=== PATIENT | male | born 1935 | race Caucasian/White ===

== ENCOUNTER 2016-09-01 15:47 | Inpatient (IN) | payer MEDICARE ==
[~2016-09-01] VITALS: Ht 175.3 cm; Wt 68.0 kg
[~2016-09-01 15:47] MED LIST: ARICEPT10 MG PO; BENICAR40 MG PO; CASODEX50 MG PO; COUMADIN2 MG PO; HYDROCODON-ACE1 EAC7 PO; ISORDIL5 MG; ISORDIL5 MG PO; ISOSORBIDE MONO30 M1 PO; LIPITOR10 MG PO; LIPITOR20 MG PO; MYSOLINE 50 MG50 MG PO; NORVASC10 MG PO; OXYBUTYNIN ER PO; OXYBUTYNIN15 MG/BOTT PO; TENORMIN50 MG PO; ZOFRAN ODT4 MG/UDTAB PO; [UNRECOGNIZED DRUG - OTHER]
[2016-09-01 16:24] VITALS: BP 149/90; BMI 22.2
--- NOTE | 2016-09-01 17:57 | NUR ---
SITTING UP IN BED WITH CALLIGHT IN REACH.
[2016-09-01 19:45] VITALS: BP 141/71
--- NOTE | 2016-09-01 20:35 | NUR ---
PT TOOK HS MEDS WITHOUT DIFFICULTY. PT SPILLED URINAL, BED LINENS WERE CHANGED. PT DENIES FURTHUR NEEDS. WCTM. BED LOW. CLIN REACH.
--- NOTE | 2016-09-01 22:28 | NUR ---
PT RESTING, EYES CLOSED. BED LOW. CLIN REACH. WCTM.
--- NOTE | 2016-09-02 00:23 | NUR ---
PT RESTING, EYES CLOSED. BED LOW. CLIN REACH. WCTM.
[2016-09-02 05:28] LABS: INR 1.31 (0.85-1.17); PROTIME 16.2 SECONDS (11.6-15.0)
--- NOTE | 2016-09-02 07:29 | NUR ---
ASSISTED WITH BEDPAN AND URINAL.CL IN REACH.
[2016-09-02 08:00] VITALS: BP 92/47
--- NOTE | 2016-09-02 08:00 | NUR ---
PATIENT ALERT/ORIENT X3. SOME FOREGETFULNESS NOTED. CALL LIGHT WITHIN REACH. VOICES NO NEEDS AT THIS TIME
--- NOTE | 2016-09-02 09:30 | NUR ---
INTO SEE PATIENT. ADMISSION PAPER WORK SIGNED BY .
[2016-09-02 10:42] VITALS: Ht 175.3 cm; Wt 68.0 kg
--- NOTE | 2016-09-02 10:45 | NUR ---
PATIENT IN REHAB ROOM. WORKING WITH PHYSICAL THERAPIST. DENIES ANY PAIN/DISC.
--- NOTE | 2016-09-02 14:00 | NUR ---
PATIENT HELPED INTO BATHROOM. MAX ASST WITH ONE PERSON. PATIENT ABLE TO STAND ON OWN, BUT CAN NOT PIVOT WITHOUT HELP. NEEDS HELP TO PULL UP AND DOWN PANTS
--- NOTE | 2016-09-02 17:00 | NUR ---
PATIENT HAS VISITORS IN ROOM. RESTING IN BED WELL. SITTING UP IN BED FOR SUPPER
[2016-09-02 19:35] VITALS: BP 112/53
--- NOTE | 2016-09-02 21:55 | NUR ---
PT TOOK HS MEDS WITHOUT DIFFICULTY. PT DENIES NEEDS AT THIS TIME. BED LOW. CL IN REACH. WCTM.
--- NOTE | 2016-09-03 03:35 | NUR ---
PT RESTING, EYES CLOSED. NO DISTRESS NOTED. WCTM. BED LOW. CL INREACH.
[2016-09-03 06:10] LABS: BASOPHILS 0.2 % (0.0-2.0); HEMATOCRIT 30.2 % (42.0-54.0); HEMOGLOBIN 10.1 g/dL (13.5-17.5); IMMATURE GRANULOCYTES 0.1 % (0-5); LYMPHOCYTES 16.1 % (15-50); MCH 32.8 pg (26.0-34.0); MCHC 33.4 g/dL (31.0-37.0); MCV 98.1 fL (80.0-100.0); MEAN PLATELET VOLUME 9.2 fL (7.4-10.4); MONOCYTES 14.5 % (2-11); NEUTROPHILS 67.1 % (40-80); PLATELET COUNT 142 10x3/uL (130-400); RBC 3.08 10x6/uL (4.20-6.10); RDW 13.4 % (11.5-14.5)
[2016-09-03 06:19] LABS: INR 1.33 (0.85-1.17); PROTIME 16.4 SECONDS (11.6-15.0)
[2016-09-03 06:22] LABS: CALC OSMOLALITY 283 mosm/kg (275-300); CALCIUM 8.6 mg/dL (8.5-10.1); CARBON DIOXIDE 30.3 mmol/L (21.0-32.0); CHLORIDE - SERUM 104 mmol/L (98-107); CREATININE - SERUM 0.8 mg/dL (0.6-1.3); GLUCOSE 95 mg/dL (74-106); SODIUM 141 mmol/L (136-145); UREA NITROGEN 20 mg/dL (7-18); eGFR NON AFRICAN AMERICAN > 90 mL/min (90-120)
--- NOTE | 2016-09-03 07:50 | NUR ---
SITTING UP IN BED WITH IN THE ROOM EATING BREAKFAST.
[2016-09-03 08:40] VITALS: BP 105/59
--- NOTE | 2016-09-03 09:55 | NUR ---
SITTING IN WHEELCHAIR IN GYM WORKING WITH THERAPY.
--- NOTE | 2016-09-03 11:46 | NUR ---
SITTING IN WHEELCHAIR WITHOUT ANY FALLS NOTED.
--- NOTE | 2016-09-03 19:20 | NUR ---
PT RESTING IN BED, WATCHING TV, DENIES NEEDS AT THIS TIME. BED LOW. CL INR EACH. WCTM.
--- NOTE | 2016-09-03 20:40 | NUR ---
PT TOOK HS MEDS WITHOUT DIFFICULTY, DENIES FURTHUR NEEDS AT THIS TIEM. BED LOW. CLIN REACH. WCTM.
--- NOTE | 2016-09-03 21:54 | NUR ---
ASSISTED PT TO BR. PT BACK IN BED AND READY FOR SLEEP. DENIES FURTHUR NEEDS. WCTM. BED LOW. CL IN REACH.
--- NOTE | 2016-09-04 02:52 | NUR ---
PT RESTING, EYES CLOSED. NO SIGNS OF DISTRESS NOTED. WCTM. BED LOW. CL IN REACH.
--- NOTE | 2016-09-04 07:00 | NUR ---
Pt. was received in bed awake at the beginning of this shift. Pt. is alert and oriented x 3. at bedside. Pt. uses a urinal. Vital signs: Temp. 98.0, pulse 61, resp. 14, b/p 131/67, 02Sat 97%. Pt. requires moderate assist. No voiced complaints or signs of discomfort or distress. Will be monitoring him throughout this shift and offering assist with adl's.
[2016-09-04 07:47] LABS: INR 1.27 (0.85-1.17); PROTIME 15.8 SECONDS (11.6-15.0)
[2016-09-04 10:34] VITALS: BP 131/67
--- NOTE | 2016-09-04 17:59 | NUR ---
Pt's IV in left ac was dc'd this morning. He can stand and transfer to wheelchair with assist. Pt. has had company on and off today. He did go to therapy this morning and worked very well. He had an uneventful day.
--- NOTE | 2016-09-04 19:30 | NUR ---
PT RESTING IN BED WITH EYES CLOSED. AWOKE EASILY TO VERBAL STIMULI. DENIES NEEDS. NO COMPLAINT OF DISCOMFORT VOICED. VSS. PT USING URINAL PRN. SR'S ARE UP X 3 IN BED. CALL LIGHT AND BEDSIDE TABLE ARE WITHIN EASY REACH.
[2016-09-04 20:00] VITALS: BP 122/65
--- NOTE | 2016-09-04 21:27 | NUR ---
PT IS RESTING QUIETLY IN BED WITH EYES CLOSED. RESPS ARE EVEN AND UNLABORED. NO ACUTE DISTRESS NOTED.
--- NOTE | 2016-09-04 21:49 | NUR ---
PT. IN BED WITH HOB UP FOR COMFORT LYING ON HIS BACK WITH EYES CLOSED AND RESP. EVEN. CALL LIGHT WITHIN REACH.
--- NOTE | 2016-09-05 01:19 | NUR ---
RESTING IN BED WITH EYES CLOSED.
--- NOTE | 2016-09-05 03:00 | NUR ---
RESTING IN BED WITH EYES CLOSED.
--- NOTE | 2016-09-05 05:42 | NUR ---
PT IS RESTING QUIETLY IN BED WITH EYES CLOSED. RESPS ARE EVEN AND UNLABORED. NO ACUTE DISTRESS NOTED. USING URINAL PRN.
[2016-09-05 07:32] LABS: INR 1.23 (0.85-1.17); PROTIME 15.4 SECONDS (11.6-15.0)
--- NOTE | 2016-09-05 07:45 | NUR ---
ASSISTED PT TO BR VIA WHEELCHAIR. SIDERAILS UP X 2 PRIOR TO TRANSFER.
[2016-09-05 09:00] VITALS: BP 113/56
--- NOTE | 2016-09-05 11:19 | NUR ---
SITTING UP IN BED WITH IN THE ROOM. CALLIGHT IN REACH.
--- NOTE | 2016-09-05 13:57 | NUR ---
ASSISTED TO BR AND BACK TO BED. VOIDED YELLOW URINE.
--- NOTE | 2016-09-05 15:40 | NUR ---
SLEEPING IN BED WITH SIDERAILS UP X2.
--- NOTE | 2016-09-05 17:05 | NUR ---
RESTING IN BED WITH HOB UP 90 DEGREES. EATING DINNER.
[2016-09-05 19:00] VITALS: BP 136/59
--- NOTE | 2016-09-05 19:15 | NUR ---
PATIENT RESTING IN BED ON LEFT SIDE, EYES CLOSED. WAS UNDISTURBED WHEN I RAISED RIGHT FOOTRAIL FOR SAFETY (SR NOW UP X3).
--- NOTE | 2016-09-05 19:30 | NUR ---
PATIENT IN BED, AWAKE SINCE RECENT VS WERE TAKEN BY CHILD WELFARE CASEWORKER. DENIES CURRENT NEEDS.
--- NOTE | 2016-09-05 21:05 | NUR ---
ASSESSMENT AND HS MEDS COMPLETE. PATIENT A&O X4. DENIES NEEDS.
--- NOTE | 2016-09-05 22:15 | NUR ---
RESTING QUEITLY IN BED, EYES CLOSED.
--- NOTE | 2016-09-06 00:30 | NUR ---
PATIENT IN BED, AWAKE. HAS NOT URINATED THIS SHIFT SO FAR. [employer] STORAGE CLERK CHECKED PATIENT AND CONFIRMS PATIENT'S CLAIM THAT HE IS DRY. PATIENT STATES HE HAS NO CURRENT URGENCY TO URINATE. URINAL IS IN REACH AT BEDSIDE.
--- NOTE | 2016-09-06 02:30 | NUR ---
PATIENT AWAKE, HAVING JUST USED URINAL. EMPTIED 250ML FROM BEDSIDE URINAL.
--- NOTE | 2016-09-06 04:45 | NUR ---
RESTING IN BED, EYES CLOSED. RESPIRING QUIETLY.
--- NOTE | 2016-09-06 06:20 | NUR ---
RESTING IN BED, EYES CLOSED AFTER ASSIST UP TO BR COMMODE EARLIER.
[2016-09-06 06:43] LABS: INR 1.18 (0.85-1.17); PROTIME 14.9 SECONDS (11.6-15.0)
--- NOTE | 2016-09-06 07:52 | NUR ---
RESTING FLAT IN BED WITH CALLIGT IN REACH.
[2016-09-06 09:00] VITALS: BP 81/47
--- NOTE | 2016-09-06 09:45 | NUR ---
AMBULATING IN HALLWAY WITH MINH THERAPIST. NO FALLS NOTED.
--- NOTE | 2016-09-06 11:24 | NUR ---
SITTING IN WHEELCHAIR WORKING WITH THERAY.
--- NOTE | 2016-09-06 13:50 | NUR ---
RESTING IN BED WITH VISITOR IN THE ROOM.
[2016-09-06 14:02] VITALS: BP 135/72
--- NOTE | 2016-09-06 15:45 | NUR ---
RESTING IN BED WITH CALLIGHT IN REACH.
--- NOTE | 2016-09-06 17:45 | NUR ---
SITTING UP IN BED EATING DINNER.
--- NOTE | 2016-09-06 19:34 | NUR ---
PT IS RESTING IN BED WITH EYES OPEN. ALERT AND ORIENTED X 3. DENIES DISCOMFORT AT THIS TIME. VSS. VISITOR AT BEDSIDE. NO NEEDS VOICED. SR'S ARE UP X 2 IN BED. CALL LIGHT AND BEDSIDE TABLE ARE WITHIN EASY REACH.
[2016-09-06 21:08] VITALS: BP 122/69
--- NOTE | 2016-09-06 22:11 | NUR ---
RESTING IN BED WITH EYES CLOSED. NO DISTRESS NOTED.
--- NOTE | 2016-09-06 23:48 | NUR ---
PT IS RESTING IN BED WITH EYES CLOSED.
--- NOTE | 2016-09-07 02:23 | NUR ---
PT RESTING IN BED WITH EYES CLOSED.
--- NOTE | 2016-09-07 05:44 | NUR ---
PT APPROXIMATELY 0500 WOKE AND WAS CONFUSED TO SITUATION AND ENVIRONMENT, PT APPEARED TO THINK HE WAS AT HOME AND WAS YELLING FOR HIS . ATTEMPTED TO REORIENT PATIENT TO LOCATION WITHOUT WAKING ROOMMATE. RESPIRATIONS REGULAR AND UNLABORED,
[2016-09-07 05:49] LABS: INR 1.29 (0.85-1.17)
[2016-09-07 08:38] VITALS: BP 129/72
--- NOTE | 2016-09-07 13:58 | NUR ---
Received pt. in bed at the beginning of this shift. No signs of any discomfort or distress. Alert and oriented x 3. Vital signs: Temp. 98.0, pulse 70, resp. 12, b/p 129/72, 02Sat. 98%. Will be monitoring him throughout this shift and assisting prn with adl's.
[2016-09-07 19:00] VITALS: BP 135/63
--- NOTE | 2016-09-07 20:00 | NUR ---
PT IS RESTING IN BED WITH EYES OPEN. ALERT AND ORIENTED X 3. DENIES ACUTE DISCOMFORT. ASSSITED UP TO BATHROOM WITH SBA. PT VOICED PRIDE IN HIS PROGRESS ON REHAB. FRIEND IN ROOM ASSISTING HIM WITH ADL'S. SR'S ARE UP X 2 IN BED. CALL LIGHT AND BEDSIDE TABLE ARE WITHIN EASY REACH.
--- NOTE | 2016-09-07 21:55 | NUR ---
RESTING QUIETLY IN BED WITH EYES CLOSED. RESPS ARE EVEN AND UNLABORED. NO ACUTE DISTRESS NOTED.
--- NOTE | 2016-09-08 00:20 | NUR ---
RESTING IN BED WITH EYES CLOSED.
--- NOTE | 2016-09-08 02:56 | NUR ---
PT IS RESTING QUIETLY IN BED WITH EYES CLOSED.
--- NOTE | 2016-09-08 03:54 | NUR ---
PT RESTING QUIETLY, EYES CLOSED RESPIRATIONS REGULAR AND UNLABORED. PT USES CALLLIGHT TO COMMUNICATE NEED FOR ASSISTANCE. SPOUSE WAS PRESENT AT BEGINNING OF SHIFT VISITING WITH PATIENT.
[2016-09-08 06:52] LABS: BASOPHILS 0.6 % (0.0-2.0); EOSINOPHILS 5.2 % (0-7); HEMOGLOBIN 9.8 g/dL (13.5-17.5); IMMATURE GRANULOCYTES 0.2 % (0-5); LYMPHOCYTES 18.9 % (15-50); MCH 32.9 pg (26.0-34.0); MCHC 33.8 g/dL (31.0-37.0); MCV 97.3 fL (80.0-100.0); MEAN PLATELET VOLUME 9.1 fL (7.4-10.4); MONOCYTES 13.9 % (2-11); NEUTROPHILS 61.2 % (40-80); RBC 2.98 10x6/uL (4.20-6.10); RDW 12.7 % (11.5-14.5); WBC 6.6 10x3/uL (4.8-10.8)
[2016-09-08 07:07] LABS: INR 1.2 (0.85-1.17); PLATELET COUNT 209 10x3/uL (130-400); PROTIME 15.1 SECONDS (11.6-15.0)
--- NOTE | 2016-09-08 07:10 | NUR ---
RESTING QUIETLY IN BED. CALL LIGHT IN REACH
[2016-09-08 07:16] LABS: CALC OSMOLALITY 280 mosm/kg (275-300); CALCIUM 8.4 mg/dL (8.5-10.1); CARBON DIOXIDE 30.1 mmol/L (21.0-32.0); CHLORIDE - SERUM 103 mmol/L (98-107); CREATININE - SERUM 0.8 mg/dL (0.6-1.3); GLUCOSE 90 mg/dL (74-106); POTASSIUM - SERUM 3.1 mmol/L (3.5-5.1); SODIUM 139 mmol/L (136-145); UREA NITROGEN 20 mg/dL (7-18); eGFR NON AFRICAN AMERICAN > 90 mL/min (90-120)
--- NOTE | 2016-09-08 07:36 | NUR ---
PATIENT LYING IN BED. ALERT/ORIENT X4. CALL LIGHT WITHIN REACH. VOICES NO NEEDS AT THIS TIME
[2016-09-08 08:15] VITALS: BP 138/74
--- NOTE | 2016-09-08 10:21 | NUR ---
PATIENT IN REHAB ROOM. WORKING WITH PHYSICAL THERAPIST. DENIES ANY PAIN/DISC AT THIS TIME
--- NOTE | 2016-09-08 12:15 | NUR ---
FAMILY INTO VISIT WITH PATIENT. PATIENT SITTING UP IN BED TO EAT LUNCH.
--- NOTE | 2016-09-08 13:55 | NUR ---
PATIENT AND PATIENTS FAMILY REQUESTED THAT PATIENT BE MOVED. NOT GETTING ALONG WITH ROOMMATE. PATIENT MOVED FROM ROOM 1111A TO 1115.
--- NOTE | 2016-09-08 16:34 | RHP ---
PATIENT: SUSANNAH DE LA CRUZ MEDICAL RECORD: [id number] ACCOUNT: [id number] LOCATION:[facility]1115 : 34 ADMISSION DATE: 09/01/16 REHABILITATION HISTORY AND PHYSICAL EXAMINATION POST ADMISSION PHYSICIAN EXAMINATION DATE OF ADMISSIONS: 09/01/2016. ADMITTING DIAGNOSES: The patient is admitted for an acute right temporal subarachnoid hemorrhage and acute displaced left superior and inferior pubic rami fracture, also a fall. HISTORY OF PRESENT ILLNESS: The patient is an 81-year-old gentleman who is admitted to the rehab with a right temporal subarachnoid hemorrhage and pelvic fracture. He states he wakes on the morning of August 30, was walking from his kitchen to his living room and apparently failed. He denies any other symptoms. He does not recall any loss of consciousness, but he does report pain in the left side of his head as well as his left hip area. In the Emergency Room, he had a temperature 97.5, pulse 80, respirations 20, blood pressure 132/86 and sats 100%. He was 10/10 at on the pain scale though according to the patient. He was alert and oriented times 3, CT of his head showed a right temporal subarachnoid hemorrhage. 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 He is admitted to the ICU with ortho consult for the pelvic fracture. Prior to admit, he was independent with ADLs and mobility without device. Currently, he is moderate to max assist for ADLs and mobility that is greatly affected by pain. The patient would definitely need to stay here in rehab for a little bit to get back to his prior level of function and hopefully will return home. COMORBIDITIES: in this patient include mitral valve insufficiency, coronary artery disease, abdominal aortic aneurysm, hypertension, pacemaker placement, Cole's palsy. 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 PAST MEDICAL HISTORY: Significant for arrhythmias. She has got a history of an AAA, coronary artery disease and hypertension. He has got a history of gastroesophageal reflux disease, gout, nicotine dependence, and seizures. PAST SURGICAL HISTORY: Includes prostatectomy, pacemaker placement, Schatzki ring dilatation and coronary artery bypass grafting times 3. ALLERGIES: HE IS ALLERGIC TO AMBIEN. CURRENT MEDICATIONS: Include Primidone 150 mg daily, Benicar 40 mg daily, Imdur 15 mg daily. He is on ____ mg daily. He is on Primidone 100 mg at bedtime. He is on oxybutynin 15 mg at bedtime, hydrocodone 5/325 as needed for pain, Aricept 10 mg at bedtime. He is on Lipitor 10 mg daily, amlodipine 10 mg daily, atenolol 50 mg b.i.d., polyethylene glycol 17 grams in 8 ounces of water daily. HABITS: He does have a history of tobacco use. FAMILY HISTORY: Noncontributory. HISTORY AND PHYSICAL [id number] SUSANNAH DE LA CRUZ SOCIAL HISTORY: The patient hopes to return back home and live with his spouse. REVIEW OF SYSTEMS: GENERAL: He does complain of some weakness and fatigue. HEENT: He denies cold, cough, or congestion. CARDIOVASCULAR: He denies chest pain. LUNGS: No shortness of breath. PHYSICAL EXAMINATION: VITAL SIGNS: Stable and afebrile. GENERAL: A thin gentleman in no acute distress, alert upon exam. HEENT: Normocephalic and atraumatic. Mucosa moist. NECK: Supple. No lymphadenopathy. LUNGS: Clear at this time. HEART: Regular rate and rhythm. ABDOMEN: Benign. EXTREMITIES: No clubbing, cyanosis or edema. He does have pain around his pelvic girth. NEUROLOGIC: Slow to mentate, but does answer most questions. The only blood work we have back on at this time is his INR which is 1.31 as Coumadin is being held secondary to subarachnoid hemorrhage. ASSESSMENT: This is an 81-year-old gentleman who is admitted with subarachnoid hemorrhage and also with pelvic fracture. The patient has potential to make improvement. We instituted the following multidisciplinary therapies including to, but not limited to physical, occupational, respiratory, speech, nutritional services, prosthetics and orthotics. Given his complex medical condition and risk of further medical complications, the patient cannot be evaluated at a lower level of care such as a jail facility. PLAN: 1. Admit to [facility] rehab for intensive inpatient therapy to include the following disciplines: A. Physical therapy to improve gait, all transfer skills and bed mobility to a modified independent level. B. Occupational therapy to improve activities of daily living to a modified independent level. C. Case management to assist with discharge planning and placement options. D. Nutrition to assist with nutritional needs. E. Rehabilitation nursing to assist in monitoring the patient's underlying medical conditions and to assist with any type of bowel or bladder management. 2. The patient's current medication and medical care will be continued. 3. The patient will be placed on standard fall precautions. 4. The patient's estimated length of stay is approximately 7-10 days. 5. Discuss this patient during care team staff meeting this week. TRANSINT:[id number] Voice Confirmation ID: [id number] DOCUMENT ID: [id number] HISTORY AND PHYSICAL [id number] SUSANNAH DE LA CRUZ, BARRIE CHAMBERLAIN at 1634 CC: [id number] DICTATION DATE: 09/02/16 1020 COMMAND AND CONTROL SPECIALIST: 09/02/16 1101 ADM IN [id number] [place] [address]
--- NOTE | 2016-09-08 17:16 | NUR ---
CARE TEAM MEETING: PATIENT TENATIVE DISCHARGE DATE IS 09/16/16. SPOUSE AND DAUGHTER ATTENDED MEETING. PLANS ARE FOR PATIENT TO RETURN HOME WITH HOME HEALTH ([facility]). HE HAS A CANE . PCP IS DR. APARICIO. WILL CONTINUE TO FOLLOW WITH PATIENT UNTIL DISCHARGED.
[2016-09-08 19:00] VITALS: BP 134/65
--- NOTE | 2016-09-08 19:00 | NUR ---
RECEIVED SHIFT REPORT FROM DOREEN PRUITT
--- NOTE | 2016-09-08 19:30 | NUR ---
ASSESSMENT PER FLOW SHEET, VS OBTAINED PER YVONNE VALENTINE, PT REPORTS FLATUS, BM TWICE TODAY, AND VOIDING BY SELF WITH NO DIFFICULTY, PT REPORTS USING A URINAL AT NIGHT, URINAL PROVIDED AT BEDSIDE, PT REQUEST SIDE RAIL ON PTS LEFT TO BE LEFT DOWN, REFUSES TO HAVE IT UP, BEDSIDE TABLE IN ITS PLACE, PT SERVED FRESH H20, PT DENIES FURTHER NEEDS, PT INST ON USING CALL LIGHT FOR ANY ASSISTANCE, PT VERBALIZES UNDERSTANDING
--- NOTE | 2016-09-08 20:22 | NUR ---
PT RESTING WITH EYES CLOSED, RESP QUIET, NO DISTRESS NOTED, LEFT UNDISTURBED AT THIS TIME
--- NOTE | 2016-09-08 21:20 | NUR ---
I WAS GOING TO LET PT KNOW THAT I WAS GETTING HIS MEDS TOGETHER, BUT PT WAS RESTING WITH EYES CLOSED, LEFT UNDISTURBED AT THIS TIME
--- NOTE | 2016-09-08 21:55 | NUR ---
PT RESTING WITH EYES CLOSED, AROUSES TO SOFT VERBAL STIMULATION, ADM 2100 MEDS PO PER MD ORDERS, SEE EMAR, PT DENIES FURTHER NEEDS OR PAIN, STATES "I JUST WANT TO BE ABLE TO GET SOME REST TONIGHT"
--- NOTE | 2016-09-08 22:27 | NUR ---
PT RESTING WITH EYES CLOSED, RESP QUIET, NO DISTRESS NOTED, LEFT UNDISTURBED AT THIS TIME
--- NOTE | 2016-09-09 00:18 | NUR ---
PT RESTING WITH EYES CLOSED, RESP QUIET, NO DISTRESS NOTED, LEFT UNDISTURED AT THIS TIME
--- NOTE | 2016-09-09 02:06 | NUR ---
PT RESTING WITH EYES CLOSED, RESP QUIET, NO DISTRESS NOTED, LEFT UNDISTURBED AT THIS TIME
--- NOTE | 2016-09-09 04:19 | NUR ---
PT RESTING WITH EYES CLOSED, RESP QUIET, NO DISTRESS NOTED, LEFT UNDISTURBED AT THIS TIME
[2016-09-09 05:26] LABS: INR 1.3 (0.85-1.17); PROTIME 16.1 SECONDS (11.6-15.0)
--- NOTE | 2016-09-09 06:11 | NUR ---
PT RESTING WITH EYES CLOSED, RESP QUIET, NO DISTRESS NOTED, LEFT UNDISTURBED AT THIS TIME
--- NOTE | 2016-09-09 07:00 | NUR ---
SHIFT REPORT TO DAY SHIFT
[2016-09-09 09:00] VITALS: BP 123/60
--- NOTE | 2016-09-09 09:37 | NUR ---
SITTING IN BED WITHOUT ANY NEEDS VOICED.
--- NOTE | 2016-09-09 11:22 | NUR ---
RESTING IN BED READING BIBLE.
--- NOTE | 2016-09-09 13:36 | NUR ---
AMBULATING IN HALLWAY WITH WALKER AND THERAPIST WITHOUT FALLS NOTED.
--- NOTE | 2016-09-09 14:04 | NUR ---
Nutrition Follow Up: Chart reviewed. Diet: Regular PO intake: 72% (9 meal avg) +BM 09/07/16 No new wt Meds and labs noted Pt with good po intake at this time. Rec continue current diet. RD following.
--- NOTE | 2016-09-09 15:50 | NUR ---
RESTING IN BED WITH CALLIGHT IN REACH.
--- NOTE | 2016-09-09 17:50 | NUR ---
SITTINGUP IN BED WITH CALLIGHT IN REACH.
[2016-09-09 19:42] VITALS: BP 140/85
--- NOTE | 2016-09-09 19:42 | NUR ---
PT RESTING IN BED, EYES OPEN, DENIES NEEDS AT THIS TIME. BED LOW. CL IN REACH.
--- NOTE | 2016-09-09 21:40 | NUR ---
PT TOOK HS MEDS WITHOUT DIFFICULYT. PT DENIES NEEDS AT THIS TIEM. BED LOW. CL IN REACH. WCTM.
--- NOTE | 2016-09-09 23:43 | NUR ---
PT RESTING, EYES CLOSED. BED LOW. CL IN REACH. WCTM.
--- NOTE | 2016-09-10 01:54 | NUR ---
PT RESTING, EYES CLOSED. BED LOW. CL IN REACH. WCTM.
--- NOTE | 2016-09-10 02:45 | NUR ---
PT ASSISTED TO BR. PT BACK IN BED RESTING AND DENIES FURTHUR NEEDS. BED LOW. CL IN REACH. WCTM.
--- NOTE | 2016-09-10 04:01 | NUR ---
PT RESTING, EYES CLOSED. BED LOW. CL IN REACH. WCTM.
[2016-09-10 06:52] LABS: BASOPHILS 0.5 % (0.0-2.0); EOSINOPHILS 4.5 % (0-7); HEMOGLOBIN 9.8 g/dL (13.5-17.5); IMMATURE GRANULOCYTES 0.3 % (0-5); LYMPHOCYTES 19.7 % (15-50); MCH 32.1 pg (26.0-34.0); MCHC 32.7 g/dL (31.0-37.0); MCV 98.4 fL (80.0-100.0); MONOCYTES 12.1 % (2-11); NEUTROPHILS 62.9 % (40-80); PLATELET COUNT 246 10x3/uL (130-400); RBC 3.05 10x6/uL (4.20-6.10); WBC 6.5 10x3/uL (4.8-10.8)
--- NOTE | 2016-09-10 06:52 | NUR ---
PT RESTING EYES CLOSED. BED LOW. CL IN REACH.
[2016-09-10 07:01] LABS: CALC OSMOLALITY 277 mosm/kg (275-300); CALCIUM 8.7 mg/dL (8.5-10.1); CARBON DIOXIDE 29.9 mmol/L (21.0-32.0); CHLORIDE - SERUM 105 mmol/L (98-107); CREATININE - SERUM 0.8 mg/dL (0.6-1.3); GLUCOSE 90 mg/dL (74-106); POTASSIUM - SERUM 3.9 mmol/L (3.5-5.1); SODIUM 140 mmol/L (136-145); UREA NITROGEN 11 mg/dL (7-18); eGFR NON AFRICAN AMERICAN > 90 mL/min (90-120)
[2016-09-10 07:11] LABS: INR 1.27 (0.85-1.17); PROTIME 15.8 SECONDS (11.6-15.0)
--- NOTE | 2016-09-10 09:45 | NUR ---
SITTING IN BED WATCHING TV. CALLIGHT IN REACH.
--- NOTE | 2016-09-10 11:00 | NUR ---
RESTING IN BED WITHOUT ANY NEEDS VOICED.
[2016-09-10 12:17] VITALS: BP 163/69
--- NOTE | 2016-09-10 15:39 | NUR ---
PT OFF THE UNIT WITH .
--- NOTE | 2016-09-10 17:02 | NUR ---
SITTING IN BED TALKING TO VISITORS.
[2016-09-10 20:00] VITALS: BP 141/68
--- NOTE | 2016-09-10 20:00 | NUR ---
PT IS RESTING IN BED WATCHING TV. ALERT AND ORIENTED X 3. DENIES ACUTE DISCOMFORT AT THIS TIME. NO NEEDS VOICED. SR'S ARE UP X 2 IN BED. CALL LIGHT AND BEDSIDE TABLE ARE WITHIN EASY REACH.
--- NOTE | 2016-09-10 21:54 | NUR ---
PT IS RESTING QUIETLY IN BED WITH EYES CLOSED. RESPS ARE EVEN AND UNLABORED. NO ACUTE DISTRESS NOTED.
--- NOTE | 2016-09-10 23:42 | NUR ---
PT IS RESTING QUIETLY IN BED WITH EYES CLOSED. RESPS ARE EVEN AND UNLABORED. NO ACUTE DISTRESS NOTED.
--- NOTE | 2016-09-11 00:19 | NUR ---
PT. IN BED LYING FLAT WITH EYES CLOSED AND RESP. EVEN. PT. AWAKENS EASILY AND DENIES ANY PROBLEMS AND HAS HIS CALL LIGHT WITHIN REACH.
--- NOTE | 2016-09-11 02:10 | NUR ---
RESTING IN BED WITH EYES CLOSED.
[2016-09-11 07:00] VITALS: BP 158/80
[2016-09-11 07:34] LABS: INR 1.19 (0.85-1.17)
--- NOTE | 2016-09-11 08:00 | NUR ---
SHIFT ASSMT COMPLETED.DENIES NEEDS.CL IN REACH.BREAKFAST GIVEN.
--- NOTE | 2016-09-11 12:00 | NUR ---
FAMILY IN ROOM.LUNCH GIVEN.CL IN REACH.
[2016-09-11 20:18] VITALS: BP 145/76
--- NOTE | 2016-09-12 06:52 | NUR ---
PT TOLERATED BIPAP FROM APPROX MIDNIGHT TO THIS AM.
--- NOTE | 2016-09-12 06:54 | NUR ---
PT RESTING, DENIES ANY COMPLAINTS.
[2016-09-12 07:00] VITALS: BP 157/78
--- NOTE | 2016-09-12 08:00 | NUR ---
SHIFT ASSMT COMPLETED.MEAL TRAY GIVEN.CL IN REACH.
--- NOTE | 2016-09-12 12:00 | NUR ---
ZAHRA SHOWER TAKEN. AT BEDSIDE.LUNCH GIVEN.CL IN REACH.
--- NOTE | 2016-09-12 16:00 | NUR ---
AT BEDSIDE.DENIES NEEDS.
[2016-09-12 19:52] VITALS: BP 141/68
--- NOTE | 2016-09-12 20:12 | NUR ---
PT PREFERS TO BE CALL BILL INSTEAD OF DERRICK DAVALOS, REVIEWED HISTORY OR BP WITH PATIENT.
--- NOTE | 2016-09-12 22:52 | NUR ---
PT RESTING IN ROOM, RESPIRATIONS REGULAR AND UNLABORED.
--- NOTE | 2016-09-13 04:57 | NUR ---
pt resting quietly, no needs noted.
[2016-09-13 08:45] VITALS: BP 178/84
[2016-09-13 20:09] VITALS: BP 126/67
--- NOTE | 2016-09-13 20:19 | NUR ---
RESTING IN BED EYES CLOSED. AROUSES TO VOICE. ALERT ORIENTED CONVERSANT. DENIES NEEDS, NO ACUTE DISTRESS.
--- NOTE | 2016-09-14 02:39 | NUR ---
PT RESTING, EYES CLOSED. BED LOW. CL IN REACH.
--- NOTE | 2016-09-14 05:37 | NUR ---
RESTING IN BED EYES CLOSED RESPIRATIONS OBSERVED. EVEN AND UNLABORED.
[2016-09-14 08:36] VITALS: BP 162/72
--- NOTE | 2016-09-14 11:28 | NUR ---
PATIENT DISCHARGING HOME WITH FAMILY. [facility] WILL PROVIDE NURSING, PT, OT. SABRINA DONALD FROM [facility]. APPOINTMENTS: DR. APARICIO 09/23/16 @ 3:45, DR. DUNCAN 10/18/16 @ 10:40. PATIENT CHOICE FORM FOR HOME HEALTH AND [facility] FORM EXPLAINED , SIGNED AND FILED IN CHART. ORDERS HAVE BEEN FAXED WITH CONFORMATION RECIEVED
--- NOTE | 2016-09-14 13:21 | NUR ---
Pt. has had a good day. He is being discharged at this time to go home with his . All of his personal belongings are gathered up and will go with him. His discharge paperwork was given to pt. and his with there understanding. He will go out of the bldg. in a wheelchair to the car.
== END 2016-09-14 13:23 | disposition home health service (06) | DRG 559 ==
LOC: D.REHAB 15:47
PROVIDERS: ADMIT Emergency Medicine
DX: S32.592D Other specified fracture of left pubis, subsequent encounter for fracture with routine healing (principal); I60.9 Nontraumatic subarachnoid hemorrhage, unspecified; I82.409 Acute embolism and thrombosis of unspecified deep veins of unspecified lower extremity; I34.0 Nonrheumatic mitral (valve) insufficiency; I25.10 Atherosclerotic heart disease of native coronary artery without angina pectoris; I71.4 Abdominal aortic aneurysm, without rupture; I10 Essential (primary) hypertension; Z95.0 Presence of cardiac pacemaker; G51.0 Bell's palsy; K21.9 Gastro-esophageal reflux disease without esophagitis; M10.9 Gout, unspecified; Z79.01 Long term (current) use of anticoagulants; F17.200 Nicotine dependence, unspecified, uncomplicated; I49.9 Cardiac arrhythmia, unspecified; W19.XXXD Unspecified fall, subsequent encounter

== ENCOUNTER → 2017-03-30 12:57 | Outpatient (CLI) | payer MEDICARE ==
[2016-09-02 10:42] VITALS: BMI 22.1
== END | disposition home or self-care (01) ==
LOC: D.CT 03-29 09:00
DX: R07.9 Chest pain, unspecified (principal)

== ENCOUNTER → 2017-05-09 12:33 | Outpatient (CLI) | payer MEDICARE ==
[2016-09-02 10:42] VITALS: BMI 22.1
== END | disposition home or self-care (01) ==
LOC: D.RAD 12:33
DX: K59.00 Constipation, unspecified (principal)

== ENCOUNTER → 2017-05-25 14:49 | Outpatient (CLI) | payer MEDICARE ==
[2016-09-02 10:42] VITALS: BMI 22.1
== END | disposition home or self-care (01) ==
LOC: D.CT 14:49
DX: I65.23 Occlusion and stenosis of bilateral carotid arteries (principal)

== ENCOUNTER → 2017-06-09 09:37 | Outpatient (CLI) | payer MEDICARE ==
--- NOTE | 2017-06-16 08:51 | EEG ---
PATIENT:SUSANNAH DE LA CRUZ DATE OF SERVICE: 06/09/17 MEDICAL RECORD: [id number] DATE OF : 33 LOCATION: [facility] ADMISSION DATE: 06/09/17 REFERRING PHYSICIAN: INTERPRETING PHYSICIAN: JAROCHO STEVENSON MD DATE OF SERVICE: 06/09/2017 REFERRED BY: myself as an outpatient. ELECTROENCEPHALOGRAM NUMBER: [id number]. DATE OF EXAMINATION: 06/09/2017 at 10:30 a.m. DATE OF : 1935. TECHNICAL DATA: This electroencephalographic recording consisted of approximately 20 minutes of data collection utilizing the international 10:20 system of electrode placement and both referential and non-referential montages. Sixteen channels of electrocerebral recording are accompanied by a 17th channel dedicated to the electrocardiographic rhythm and 2 channels of electromyographic recording. Recording is performed in the awake and drowsy states utilizing activation by photic stimulation. ELECTROENCEPHALOGRAPHIC DATA: The awake state comprises approximately 70% of the recorded electrocerebral activity. Electromyographic artifact is prominent and rapid eye movements are seen. The posterior dominant background consists of a well-developed semi-rhythmic, waxing and waning 7-8 Hz alpha activity, which is suppressed by eye opening. The drowsy state comprises the remaining portion of the recorded electrocerebral activity. Electromyographic artifact is mildly reduced. Rapid eye movements are not seen. The posterior dominant background tends more towards 7 Hz. No abnormal or focal slowing is identified. No epileptiform discharges are seen. Photic stimulation induces no abnormal change in the recorded electrocerebral activity. INTERPRETATION: Normal (awake and drowsy). This is a normal electroencephalographic recording. TRANSINT:[id number] Voice Confirmation ID: [id number] DOCUMENT ID: [id number] JAROCHO STEVENSON MD at 0851 CC: [id number] DICTATION DATE: 06/12/17 0632 CIVIL TECHNICIAN: 06/12/17 1213 DEP CLI 06/09/17 [id number] [place] [address]
== END | disposition home or self-care (01) ==
LOC: D.CN 09:37
DX: F03.90 Unspecified dementia, unspecified severity, without behavioral disturbance, psychotic disturbance, mood disturbance, and anxiety (principal)

== ENCOUNTER → 2017-10-27 13:10 | Outpatient (CLI) | payer MEDICARE ==
[2016-09-02 10:42] VITALS: BMI 22.1
== END | disposition home or self-care (01) ==
LOC: D.CT 13:10
DX: R41.0 Disorientation, unspecified (principal)

== ENCOUNTER 2017-12-19 16:15 | Emergency (ER) | payer MEDICARE ==
[2016-09-02 10:42] VITALS: BMI 22.1
[2017-12-19 17:24] LABS: BASOPHILS 0.5 % (0-2); EOSINOPHILS 4.6 % (0-7); HEMATOCRIT 33.8 % (42.0-54.0); HEMOGLOBIN 11.5 g/dL (13.5-17.5); IMMATURE GRANULOCYTES 0.2 % (0-5); LYMPHOCYTES 19.8 % (15-50); MCH 33.2 pg (26.0-34.0); MCV 97.7 fL (80.0-100.0); MEAN PLATELET VOLUME 8.5 fL (7.4-10.4); MONOCYTES 18.3 % (2-11); NEUTROPHILS 56.6 % (40-80); RBC 3.46 10x6/uL (4.20-6.10); RDW 12.8 % (11.5-14.5); WBC 5.9 10x3/uL (4.8-10.8)
[2017-12-19 17:25] LABS: PLATELET COUNT 141 10x3/uL (130-400)
[2017-12-19 18:04] LABS: ALBUMIN 3.5 g/dL (3.4-5.0); BILIRUBIN - TOTAL 0.35 mg/dL (0.2-1.3); CREATININE - SERUM 1.1 mg/dL (0.6-1.3); PROTEIN - SERUM 6.8 g/dL (6.4-8.2)
[2017-12-19 18:17] LABS: APPEARANCE CLEAR (CLEAR); BILIRUBIN NEGATIVE (NEGATIVE); COLOR YELLOW (YELLOW); GLUCOSE NEGATIVE (NEGATIVE); KETONE NEGATIVE (NEGATIVE); NITRITE NEGATIVE (NEGATIVE); PROTEIN NEGATIVE (NEGATIVE); UROBILINOGEN NORMAL (NORMAL)
[2017-12-19 18:27] LABS: APTT 27.1 SECONDS (22.8-39.4); INR 1.25 (0.85-1.17); PROTIME 15.2 SECONDS (11.6-15.0)
[2017-12-20] MEDS ORDERED: NEURONTIN 300300 MG PO (11:12)
[2017-12-20] MEDS ORDERED: AVAPRO300 MG PO (11:12)
[2017-12-20] MEDS ORDERED: MAG-OX 400 MG400 MG PO (11:13)
[2017-12-20] MEDS ORDERED: TRAVATAN Z2.5 ML EACH EYE (11:14)
[2017-12-20] MEDS ORDERED: COUMADIN4 MG PO (11:15)
[2017-12-20] MEDS ORDERED: MYRBETRIQ25 MG PO (11:16)
== END 2017-12-19 19:51 | disposition home or self-care (01) ==
LOC: D.ER 16:15
PROVIDERS: Emergency Medicine; Physician Assistant
DX: R42 Dizziness and giddiness (principal); E16.2 Hypoglycemia, unspecified; I10 Essential (primary) hypertension; F03.90 Unspecified dementia, unspecified severity, without behavioral disturbance, psychotic disturbance, mood disturbance, and anxiety; Z95.0 Presence of cardiac pacemaker

== ENCOUNTER 2017-12-20 10:53 | Outpatient (CLI) | payer MEDICARE ==
[~2017-12-20] VITALS: Ht 175.3 cm; Wt 71.4 kg
--- NOTE | ~2017-12-20 | HEMODYNAMI ---
PATIENT:SUSANNAH DE LA CRUZ MEDICAL RECORD: [id number] : 33 LOCATION:[facility] ADMISSION DATE: 12/20/17 Generatedon:12/20/201713:24 Patient name: SUSANNAH DE LA CRUZ Patient #: [id number] SSN: D OB: 1935 Date of study: 12/20/2017 Page: Of Hemodynamic Procedure Report Patient Data Patient Demographics Procedure consent was obtained First Name: SUSANNAH Gender: Male Last Name: : 1935 Middle Initial: L Age: 82 year(s) Patient #: [id number] Race: Additional ID: [id number] Contact details Address: [address] [place] [address] State: [place] City: [facility] Zip code: [address] Past Medical History Allergies Allergen Reaction Date Comments Reported Other allergy 12/20/2017 Ambien Admission Admission Data Admission Date: 12/20/2017 Admission Time: 10:53 Procedure Procedure Types Cath Procedure Diagnostic Procedure LHC LHC w/Coronaries w/Grafts Sedation Charges Moderate Sedation up to 15 minutes Procedure Description Procedure Date Procedure Date: 12/20/2017 Procedure Start Time: 13:00 Procedure End Time: 13:23 Procedure Staff Name Function Dipesh Hu MD Performing Physician Yoandy Dimas RN Nurse Kvng Cordoba RT Scrub [place] Leonor RT Monitor Procedure Data Cath Procedure Fluoroscopy Diagnostic fluoroscopy Total fluoroscopy Time: 4.8 time: 4.8 min min Diagnostic fluoroscopy Total fluoroscopy dose: 503 dose: 503 mGy mGy Contrast Material Contrast Material Type Amount (ml) Isovue 300 108 Entry Location Entry Primary Successful Side Size Upsize Upsize Entry Closure Succes sful Closure Location (Fr) 1 (Fr) 2 (Fr) Remarks Device Remarks Femoral Right 5 Fr Exoseal artery Estimated blood loss: 5 ml Diagnostic catheters Device Type Used For End Catheter Placement MULTIPACK JL 4.0 5Fr Procedure catheter DIAGNOSTIC JL 5 5Fr Procedure catheter ([id number]) DIAGNOSTIC AR 1 MOD 5Fr Procedure catheter ([id number]) DIAGNOSTIC IM 5Fr Procedure catheter ([id number]) MULTIPACK Pigtail 5 Fr Procedure catheter Procedure Complications No complications Procedure Medications Medication Administration Route Dosage 0.9% NaCl I.V. 100 ml/hr Oxygen etCO2 Nasal cannula 2 l/min Heparin Flush Bag added to field 2 bags (1000units/500ml NS) Lidocaine 2% added to field 20 Versed I.V. 0.5 mg Fentanyl I.V. 25 mcg Fentanyl I.V. 25 mcg Hemodynamics Rest Heart Rate: 72 (bpm) Pressure Samples Time Site Value (mmHg) Purpose Heart Use Rate(bpm) 13:16 LV 133/12,22 Snapshot 50 Gradients Valve Time Site Site Mean SEP/DFP Peak To Heart Use 1 2 (mmHg) (sec/min) Peak Rate (mmHg) (bpm) Aortic 13:17 LV AO 87 Snapshots Pre Cath Intra NCS Post Cath Vital Signs Time Heart Resp SPO2 etCO2 NIBP (mmHg) Rhythm Pain Sedation Rate (ipm) (%) (mmHg) Status Level (bpm) 12:52:26 65 14 100 36.3 173/89(147) Paced 0 (11) 10(A) , No pain 12:57:17 60 15 100 33.3 166/84(140) Paced 0 (11) 10(A) , No pain 13:02:04 53 15 100 0 144/72(114) Paced 0 (11) 9(A) , No pain 13:06:50 67 18 100 0 129/68(105) Paced 0 (11) 9(A) , No pain 13:11:31 62 33 100 24.9 133/80(119) Paced 0 (11) 9(A) , No pain 13:16:14 34 18 99 0 126/70(102) Paced 0 (11) 9(A) , No pain 13:20:54 60 16 100 0 134/73(113) Paced 0 (11) 9(A) , No pain Medications Time Medication Route Dose Verified Delivered Reason Notes Eff ectiveness by by 12:52:15 0.9% NaCl I.V. 100 Yoandy Yoandy Per ml/hr Wing Dimas physician RN RN 12:52:49 Oxygen etCO2 2 Yoandy Yoandy Per Nasal l/min Wing Dimas physician cannula RN RN 12:53:06 Heparin Flush added 2 Yoandy Yoandy used for Bag to bags Lorigan Lorigan procedure (1000units/500ml field RN RN NS) 12:53:18 Lidocaine 2% added 20ml Yoandy Yoandy for local to vial Lorigan Lorigan anesthetic field RN RN 12:57:26 Versed I.V. 0.5 Yoandy Yoandy for mg Lorigan Lorigan sedation RN RN 12:57:37 Fentanyl I.V. 25 Yoandy Yoandy for mcg Lorigan Lorigan sedation RN RN 13:04:47 Fentanyl I.V. 25 Yoandy Yoandy for mcg Lorigan Lorigan sedation RN lap welder Log Time Note 12:35:14 Yoandy Dimas RN sent for patient. Start room use. 12:42:20 Time tracking: Regular hours 12:42:26 Plan of Care:Hemodynamics will remain stable., Cardiac rhythm will remain stable., Comfort level will be maintained., Respiratory function will remain adequate., Patient/ family verbilizes understanding of procedure., Procedure tolerated without complication., Recovers from procedure without complications.. 12:42:30 Patient received from Pre/Post Procedure Room to CCL 1 Alert and oriented. Tansferred to table in Supine position. 12:42:31 Warm blankets applied, and yolette hugger turned on for patient comfort. 12:42:31 Correct patient and procedure confirmed by team. 12:42:33 Signed procedure consent form obtained from patient. 12:42:38 ECG and BP/O2 sat monitors applied to patient. 12:50:43 Vital chart was started 12:50:46 Rhythm: sinus rhythm 12:50:48 Full Disclosure recording started 12:50:56 H&P Date Dictated: 12/09/2017 Within 30 days and on chart., H&P Addendum completed by physician on day of procedure. (MUST COMPLETE FOR ALL OUTPATIENTS). 12:50:58 Pre-procedure instructions explained to patient. 12:50:58 Pre-op teaching completed and patient verbalized understanding. 12:51:03 Family in patients room. 12:51:04 Patient NPO since Midnight. 12:51:15 Patient allergic to Other allergyAmbien 12:51:17 Is the patient allergic to Iodine/contrast media? No. 12:51:20 Is patient on blood thinner?Yes 12:51:49 PATIENT'S LAST DOSE COUMADIN 12/15/17 12:51:55 Patient diabetic? No. 12:52:15 0.9% NaCl 100 ml/hr I.V. was administered by Yoandy Dimas RN; Per physician; 12:52:30 Previous problem with sedation/anesthesia? No ? 12:52:33 Snore? No 12:52:34 Sleep apnea? No 12:52:35 Deviated septum? No 12:52:36 Opens mouth fully? Yes 12:52:36 Sticks out tongue? Yes 12:52:38 Airway obstruction? No ? 12:52:42 Dentures? No ? 12:52:49 Oxygen 2 l/min etCO2 Nasal cannula was administered by Yoandy Dimas RN; Per physician; 12:52:53 Pre procedure: right dorsailis pedis pulse 0-Absent 12:53:01 Patient pain scale 0/10 ?. 12:53:06 Heparin Flush Bag (1000units/500ml NS) 2 bags added to field was administered by Yoandy Dimas RN; used for procedure; 12:53:09 IV patent on arrival in left hand with 0.9% NaCl at [facility]. 12:53:12 Lab results completed and on chart. 12:53:18 Lidocaine 2% 20ml vial added to field was administered by Yoandy Dimas RN; for local anesthetic; 12:53:18 Right groin area was prepped with chlora-prep and draped in sterile fashion 12:53:19 Alarms reviewed by R. N. 12:53:20 Sharps counted by scrub and verified by R.N. 12:53:27 Use device set Femoral Dx 12:53:28 ACIST Syringe (07841) opened to sterile field. 12:53:28 Bag Decanter (2002) opened to sterile field. 12:53:29 Medline Cath Pack ([id number]) opened to sterile field. 12:53:29 SHEATH 5FR Pierpont ([id number]) opened to sterile field. 12:53:30 DIAGNOSTIC WIRE .035 260cm J wire (162974) opened to sterile field. 12:53:30 ACIST Hand Control (53545) opened to sterile field. 12:53:31 ACIST Manifold (87235) opened to sterile field. 12:53:31 DIAGNOSTIC Multipack 5Fr catheter set ([id number]) opened to sterile field. 12:53:32 Tegaderm 4 x 4 (1626W) opened to sterile field. 12:53:33 PERCUTANEOUS ENTRY 19GA needle opened to sterile field. 12:56:32 Final Timeout: patient, procedure, and site verified with staff and physician. All members of the team are in agreement. 12:56:34 Right groin site verified by team. 12:56:36 Physical assessment completed. ASA score P 2 - A patient with mild systemic disease as per Dipesh Hu MD. 12:56:40 Sedation plan: IV Moderate Sedation Medication:Versed, Fentanyl 12:57:26 Versed 0.5 mg I.V. was administered by Yoandy Dimas RN; for sedation; 12:57:37 Fentanyl 25 mcg I.V. was administered by Yoandy Dimas RN; for sedation; 13:00:18 Procedure started. 13:00:21 Local anesthetic to right femoral artery with Lidocaine 2% by Dipesh Hu MD.INITIAL ACCESS ONLY 13:01:04 Baseline sample Acquired. 13:03:01 Zero performed for pressure channel P1 13:04:20 A 5 Fr sheath was inserted into the Right Femoral artery 13:04:37 A MULTIPACK JL 4.0 5Fr catheter was advanced over the wire and used for Procedure. 13:04:47 Fentanyl 25 mcg I.V. was administered by Yoandy Dimas RN; for sedation; 13:06:01 Catheter exchanged over wire. 13:06:13 unable to cannulate LCA. 13:06:27 A DIAGNOSTIC JL 5 5Fr catheter ([id number]) was advanced over the wire and used for Procedure. 13:07:50 LCA angiography performed. 13:07:52 Catheter exchanged over wire. 13:08:36 A DIAGNOSTIC AR 1 MOD 5Fr catheter ([id number]) was advanced over the wire and used for Procedure. 13:09:20 RCA angiography performed. 13:10:55 SVG to Circ angiography performed. 13:12:01 Catheter exchanged over wire. 13:12:51 A DIAGNOSTIC IM 5Fr catheter ([id number]) was advanced over the wire and used for Procedure. 13:14:02 DERAS to LAD angiography performed. 13:14:32 Catheter exchanged over wire. 13:14:54 A MULTIPACK Pigtail 5 Fr catheter was advanced over the wire and used for Procedure. 13:15:06 LV gram done using JANSEN 13:15:09 Injector settings: Ml/sec: 10, Volume: 20, 13:15:50 LV hemodynamics recorded. 13:16:47 EF : 45 % 13:17:06 Aortic Root visualized 13:17:51 Catheter removed. 13:18:09 EXOSEAL 5Fr (EX500) opened to sterile field. 13:19:02 Sheath removed intact; hemostasis achieved with Exoseal to the Right Femoral artery. 13:20:02 Procedure ended.(Physican Out) 13:21:07 Fluoroscopy time 04.80 minutes. 13:21:11 Fluoroscopy dose: 503 mGy 13:21:11 Flurop Dose total: 503 13:21:28 Contrast amount:Isovue 300 108ml. 13:21:34 Post right femoral artery:stable, soft, clean and dry 13:21:38 Post-op/insertion site Right Femoral artery dressed using a 4 x 4 and Tegaderm. 13:21:52 Post procedure: right dorsailis pedis pulse 0-Absent. 13:21:55 Post-procedure physical assessment completed. ASA score P 2 - A patient with mild systemic disease as per Dipesh Hu MD. 13:22:00 Post procedure rhythm: paced 13:22:02 Estimated blood loss: 5 ml 13:22:04 Post procedure instruction explained to patient.Patient verbalizes understanding. 13:22:05 Patient needs reinforcement of post procedure teaching. 13:22:12 Procedure type changed to Cath procedure, Diagnostic procedure, LHC, LHC w/Coronaries w/Grafts, Sedation Charges, Moderate Sedation up to 15 minutes 13:23:43 Procedure and supply charges have been captured, reviewed, submitted and are correct. 13:23:45 Procedure Complication : No complications 13:23:48 Vital chart was stopped 13:23:48 See physician's report for complete and final results. 13:23:49 Report given to Pre/Post Procedure Room. 13:23:56 Patient transfered to Pre/Post Procedure Room with Bed. 13:23:57 Procedure ended. 13:23:57 Full Disclosure recording stopped 13:24:02 End room use (Document Last) Device Usage Item Name Manufacture Quantity Catalog Hospital Part Current Minimal Lot# / Number Charge Number Stock Stock Serial# Code ACIST Acist 1 [id number] 677455 282913 646209 20 Syringe Pharminox (09517) ezeep Inc Bag Decanter Microtek 1 489807 37687 851775 5 (2002S) Medical Inc. Medline Cath Cardinal 1 [id number] 788478 66849 848528 5 Pack Health ([id number]) SHEATH 5FR Terumo 1 [id number] 805452 291821 145499 40 Pierpont (JDV239) DIAGNOSTIC St Russ 1 486314 040701 909813 393217 30 WIRE .035 260cm J wire (637010) ACIST Hand Acist 1 68031 916768 521855 117789 5 Control Medical (12062) Systems Inc ACIST Acist 1 76825 772983 184893 746720 5 Manifold Medical (29573) Systems Inc DIAGNOSTIC Cardinal 1 HS4448 871253 21978 643613 30 Multipack Health 5Fr catheter set ([id number]) Tegaderm 4 x 3M 1 1626W 642127 237971 467983 5 4 (1626W) PERCUTANEOUS Cook Medical 1 [id number] 715094 858320 5 ENTRY 19GA needle MULTIPACK JL Cardinal 1 599334 5 4.0 5Fr Health catheter DIAGNOSTIC Cardinal 1 [id number] 987771 186224 820867 5 JL 5 5Fr Health catheter (989131I) DIAGNOSTIC Cardinal 1 [id number] 540603 205209 580348 15 AR 1 MOD 5Fr Health catheter (996541B) DIAGNOSTIC Cardinal 1 [id number] 738362 938051 845656 5 IM 5Fr Health catheter ([id number]) MULTIPACK Cardinal 1 157209 5 Pigtail 5 Fr Health catheter EXOSEAL 5Fr Cardinal 1 EX500 102461 180885 393168 10 (EX500) Health Signature Audit [place] Stage Time Signature Unsigned Intra-Procedure 12/20/2017 Shayy Galvez 1:24:18 PM RT(R) Signatures Monitor : Shayy Galvez Signature : RT Date : Time : [facility] [address] [place] [address]
[2017-12-20] MEDS ORDERED: AVAPRO300 MG PO (11:12)
[2017-12-20] MEDS ORDERED: NEURONTIN 300300 MG PO (11:12)
[2017-12-20] MEDS ORDERED: MAG-OX 400 MG400 MG PO (11:13)
[2017-12-20] MEDS ORDERED: TRAVATAN Z2.5 ML EACH EYE (11:14)
[2017-12-20] MEDS ORDERED: COUMADIN4 MG PO (11:15)
[2017-12-20] MEDS ORDERED: MYRBETRIQ25 MG PO (11:16)
[2017-12-20 11:19] VITALS: BP 127/55; Ht 175.3 cm; Wt 71.4 kg
[2017-12-20 11:28] LABS: BASOPHILS 0.5 % (0-2); EOSINOPHILS 2.9 % (0-7); HEMATOCRIT 37.5 % (42.0-54.0); HEMOGLOBIN 12.7 g/dL (13.5-17.5); IMMATURE GRANULOCYTES 0.3 % (0-5); LYMPHOCYTES 23.2 % (15-50); MCH 33.4 pg (26.0-34.0); MCHC 33.9 g/dL (31.0-37.0); MCV 98.7 fL (80.0-100.0); MEAN PLATELET VOLUME 8.9 fL (7.4-10.4); MONOCYTES 11.6 % (2-11); NEUTROPHILS 61.5 % (40-80); RDW 12.7 % (11.5-14.5)
[2017-12-20 11:31] LABS: PLATELET COUNT 172 10x3/uL (130-400); WBC 7.6 10x3/uL (4.8-10.8)
[2017-12-20 11:40] LABS: INR 1.17 (0.85-1.17); PROTIME 14.5 SECONDS (11.6-15.0)
[2017-12-20 11:43] LABS: CALC OSMOLALITY 269 mosm/kg (275-300); CALCIUM 8.5 mg/dL (8.5-10.1); CARBON DIOXIDE 26.2 mmol/L (21.0-32.0); CHLORIDE - SERUM 100 mmol/L (98-107); CREATININE - SERUM 0.9 mg/dL (0.6-1.3); GLUCOSE 89 mg/dL (74-106); POTASSIUM - SERUM 4.5 mmol/L (3.5-5.1); SODIUM 135 mmol/L (136-145); UREA NITROGEN 14 mg/dL (7-18); eGFR NON AFRICAN AMERICAN 85 mL/min (90-120)
== END 2017-12-20 14:00 | disposition home or self-care (01) ==
LOC: D.CATH 10:53
PROVIDERS: Internal Medicine Cardiovascular Disease
DX: I25.10 Atherosclerotic heart disease of native coronary artery without angina pectoris (principal); I48.91 Unspecified atrial fibrillation; Z95.1 Presence of aortocoronary bypass graft; Z01.812 Encounter for preprocedural laboratory examination

== ENCOUNTER 2018-11-23 10:36 | Emergency (ER) | payer MEDICARE ==
[~2018-11-23] VITALS: Ht 175.3 cm; Wt 72.7 kg
[~2018-11-23 10:36] MED LIST changes: +AVAPRO300 MG PO; +COUMADIN4 MG PO; +MAG-OX 400 MG400 MG PO; +MYRBETRIQ25 MG PO; +NEURONTIN 300300 MG PO; +TRAVATAN Z2.5 ML EACH EYE
[2018-11-23 10:50] VITALS: Ht 175.3 cm; Wt 72.7 kg
[2018-11-23 11:55] LABS: APTT 32.7 SECONDS (22.8-39.4); INR 2.7 (0.85-1.17); PROTIME 27.9 SECONDS (11.6-15.0)
[2018-11-23 12:46] LABS: BASOPHILS 0.1 % (0-2); EOSINOPHILS 1.4 % (0-7); HEMATOCRIT 37.1 % (42.0-54.0); HEMOGLOBIN 12.7 g/dL (13.5-17.5); IMMATURE GRANULOCYTES 0.5 % (0-5); LYMPHOCYTES 15.4 % (15-50); MCH 32.7 pg (26.0-34.0); MCHC 34.2 g/dL (31.0-37.0); MCV 95.6 fL (80.0-100.0); MEAN PLATELET VOLUME 9.3 fL (7.4-10.4); MONOCYTES 10.8 % (2-11); NEUTROPHILS 71.8 % (40-80); PLATELET COUNT 171 10x3/uL (130-400); RBC 3.88 10x6/uL (4.20-6.10); RDW 12.7 % (11.5-14.5); WBC 9.2 10x3/uL (4.8-10.8)
[2018-11-23 12:51] LABS: ALBUMIN 3.3 g/dL (3.4-5.0); ALKALINE PHOSPHATASE 92 U/L (46-116); ALT (SGPT) 32 U/L (10-68); BILIRUBIN - TOTAL 0.51 mg/dL (0.2-1.3); CALC OSMOLALITY 264 mosm/kg (275-300); CALCIUM 8.2 mg/dL (8.5-10.1); CARBON DIOXIDE 32.6 mmol/L (21.0-32.0); CHLORIDE - SERUM 98 mmol/L (98-107); CREATININE - SERUM 0.9 mg/dL (0.6-1.3); GLUCOSE 101 mg/dL (74-106); POTASSIUM - SERUM 4.2 mmol/L (3.5-5.1); PROTEIN - SERUM 6.5 g/dL (6.4-8.2); SODIUM 133 mmol/L (136-145); UREA NITROGEN 11 mg/dL (7-18); eGFR NON AFRICAN AMERICAN 85 mL/min (90-120)
[2018-11-23 18:01] VITALS: BP 152/87
== END 2018-11-23 17:28 | disposition other institution (70) ==
LOC: D.ER 10:36
PROVIDERS: Family Medicine
DX: S72.141A Displaced intertrochanteric fracture of right femur, initial encounter for closed fracture (principal); W18.30XA Fall on same level, unspecified, initial encounter; Y93.01 Activity, walking, marching and hiking; Y92.480 Sidewalk as the place of occurrence of the external cause; I48.91 Unspecified atrial fibrillation; Z79.01 Long term (current) use of anticoagulants; S89.91XA Unspecified injury of right lower leg, initial encounter